=== PATIENT | female | born 1995 | race Caucasian/White ===

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

== ENCOUNTER 2020-07-30 18:03 | Emergency (ER) | payer OTHER | END 2020-07-30 20:20 | disposition left against medical advice (07) | LOC: ER1 18:03 | DX: Z53.21 Procedure and treatment not carried out due to patient leaving prior to being seen by health care provider (principal) ==

== ENCOUNTER → 2020-10-05 | Outpatient (CLI) | payer OTHER | LOC: KOH-I 10-02 13:00 → US 13:30 | DX: E04.9 Nontoxic goiter, unspecified (principal) | CPT/HCPCS: 76536 ==

== ENCOUNTER → 2021-09-09 | Outpatient (CLI) | payer OTHER | LOC: KOH-I 10:21 | DX: M25.571 Pain in right ankle and joints of right foot (principal); S82.891A Other fracture of right lower leg, initial encounter for closed fracture | CPT/HCPCS: 73610 ==